=== PATIENT | male | born 1985 | race Caucasian/White ===

== ENCOUNTER 2016-07-10 11:25 | Day surgery (SDC) | payer BC, OTHER ==
[~2016-07-10 11:25] MED LIST: Lactated Ringers 1,000 ML IV SCH; Lidocaine 1%/Sod Bicarbonate in NS 8.4% 1 ML Syringe PRN; Sodium Chloride 0.9% 10 ML Syringe FLUSH PRN
[2016-07-10] MEDS ORDERED: fentaNYL 100 MCG/2 ML SDV IVPUSH PRN (12:05)
[2016-07-10] MEDS ORDERED: Ondansetron 4 MG/2 ML SDV IVPUSH PRN (12:05)
--- NOTE | 2016-07-10 12:05 | PCM.PREANE ---
Preanesthetic Assessment - Anesthesia/Transfusion/Family Hx Anesthesia History: Prior Anesthesia Without Reaction Type of Anesthesia Reaction: Unknown Family History of Anesthesia Reaction: No Transfusion History: Unknown Type of Transfusion Reactions: Reports: Other (see below) - Review of Systems General: No Symptoms Pulmonary: Wheezing (asthma, uses inhaler with pet allergies that triggers asthma) Cardiovascular: No Symptoms Gastrointestinal: No symptoms Neurological: No Symptoms Other: Reports: None - Physical Assessment NPO Status Date: 07/09/16 NPO Status Time: 22:00 Pulse: 62 O2 Sat by Pulse Oximetry: 97 Respiratory Rate: 16 Blood Pressure: 133/75 Vital Signs: Last Vital Signs Temp 36.5 C 07/10/16 11:30 Pulse 62 07/10/16 11:30 Resp 16 07/10/16 11:30 BP 133/75 07/10/16 11:30 Pulse Ox 97 07/10/16 11:30 Height: 1.83 m Weight: 73.482 kg ASA Class: 1 Mental Status: Alert & Oriented x3 Airway Class: Mallampati = 2 Dentition: Reports: Normal Dentition Thyro-Mental Finger Breadths: 3 Mouth Opening Finger Breadths: 3 ROM/Head Extension: Full Lungs: Clear to auscultation, Normal respiratory effort Cardiovascular: Regular Rate, Regular Rhythm - Lab Values: Laboratory Last Values WBC 5.20 K/mm3 (4.23-9.07) 06/24/16 10:51 RBC 5.26 M/mm3 (4.63-6.08) 06/24/16 10:51 Hgb 16.2 gm/L (13.7-17.5) 06/24/16 10:51 Hct 46.7 % (40.1-51.0) 06/24/16 10:51 MCV 88.8 fl (79.0-92.2) 06/24/16 10:51 MCH 30.8 pg (25.7-32.2) 06/24/16 10:51 MCHC 34.7 g/dl (32.2-35.5) 06/24/16 10:51 RDW Std Deviation 39.0 fL (35.1-43.9) 06/24/16 10:51 Plt Count 276 K/mm3 (163-337) 06/24/16 10:51 MPV 9.6 fl (9.4-12.3) 06/24/16 10:51 Neutrophils % (Manual) 63 % (40-60) H 06/24/16 10:51 Band Neutrophils % 0 % (0-10) 06/24/16 10:51 Lymphocytes % (Manual) 33 % (20-40) 06/24/16 10:51 Atypical Lymphs % 0 % 06/24/16 10:51 Monocytes % (Manual) 4 % (2-10) 06/24/16 10:51 Eosinophils % (Manual) 0 % (0.8-7.0) L 06/24/16 10:51 Basophils % (Manual) 0 (0.2-1.2) L 06/24/16 10:51 Platelet Estimate Adequate 06/24/16 10:51 RBC Morph Comment Normal 06/24/16 10:51 Sodium 140 mEq/L (136-145) 06/24/16 10:51 Potassium 4.3 mEq/L (3.5-5.1) 06/24/16 10:51 Chloride 103 mEq/L (98-107) 06/24/16 10:51 Carbon Dioxide 29 mEq/L (21-32) 06/24/16 10:51 Anion Gap 12.3 (5-15) 06/24/16 10:51 BUN 16 mg/dL (7-18) 06/24/16 10:51 Creatinine 0.9 mg/dL (0.7-1.3) 06/24/16 10:51 Est Cr Clr Drug Dosing TNP 06/24/16 10:51 Estimated GFR (MDRD) > 60 mL/min (>60) 06/24/16 10:51 BUN/Creatinine Ratio 17.8 (14-18) 06/24/16 10:51 Glucose 112 mg/dL (74-106) H 06/24/16 10:51 Calcium 9.7 mg/dL (8.5-10.1) 06/24/16 10:51 MRSA (PCR) Negative 06/24/16 10:51 - Allergies Allergies/Adverse Reactions: Allergies Allergy/AdvReac Type Severity Reaction Status Date / Time cat dander Allergy Other Verified 07/09/16 14:18 - Blood Blood Available: No Product(s) Available: None - Anesthesia Plan Pre-Op Medication Ordered: None - Acknowledgements Anesthesia Type Planned: General Anesthesia Pt an Appropriate Candidate for the Planned Anesthesia: Yes Alternatives and Risks of Anesthesia Discussed w Pt/Guardian: Yes Pt/Guardian Understands and Agrees with Anesthesia Plan: Yes PreAnesthesia Questionnaire 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 - Past Surgical History HEENT Surgical History: Reports: Other (see below) Other HEENT Surgeries/Procedures: wisdom teeth, seasonal allergies Musculoskeletal Surgical History: Reports: ORIF Other Musculoskeletal Surgeries/Procedures:: ORIF left olecranon fracture - SUBSTANCE USE Smoking Status *Q: Former Smoker Tobacco Use Within Last Twelve Months: Cigarettes - HOME MEDS Home Medications: Home Meds Albuterol [IJD: Ventolin HFA] 18 gm INH ASDIRECTED PRN 07/09/16 [History] Hydrocodone/Acetaminophen [[place] 5-325 Tablet] 1 - 2 each PO Q6H PRN #40 tablet 07/10/16 [Rx] - CURRENT (IN HOUSE) MEDS Current Meds: Current Medications Lactated Ringer's (Ringers, Lactated) 1,000 mls @ 125 mls/hr IV ASDIRECTED FRANCESCO Stop: 07/10/16 23:00 Last Admin: 07/10/16 11:45 Dose: 125 mls/hr Lidocaine/Sodium Bicarbonate (Buffered Lidocaine 1% In Ns 8.4%) 0.25 ml .XX ONETIME PRN PRN Reason: Prior to IV Start Stop: 07/10/16 18:00 Last Admin: 07/10/16 11:45 Dose: 0.25 ml Sodium Chloride (Saline Flush) 10 ml FLUSH ASDIRECTED PRN PRN Reason: Keep Vein Open Stop: 07/10/16 18:00 Preanesthetic Assessment - PHYSICAL ASSESSMENT O2 Sat by Pulse Oximetry: 97 RR: 16 Vital Signs: Last Vital Signs Temp 36.5 C 07/10/16 11:30 Pulse 62 07/10/16 11:30 Resp 16 07/10/16 11:30 BP 133/75 07/10/16 11:30 Pulse Ox 97 07/10/16 11:30 Height: 1.83 m Weight: 73.482 kg NPO Status Date: 07/09/16 NPO Status Time: 22:00 - LAB Values: Laboratory Last Values WBC 5.20 K/mm3 (4.23-9.07) 06/24/16 10:51 RBC 5.26 M/mm3 (4.63-6.08) 06/24/16 10:51 Hgb 16.2 gm/L (13.7-17.5) 06/24/16 10:51 Hct 46.7 % (40.1-51.0) 06/24/16 10:51 MCV 88.8 fl (79.0-92.2) 06/24/16 10:51 MCH 30.8 pg (25.7-32.2) 06/24/16 10:51 MCHC 34.7 g/dl (32.2-35.5) 06/24/16 10:51 RDW Std Deviation 39.0 fL (35.1-43.9) 06/24/16 10:51 Plt Count 276 K/mm3 (163-337) 06/24/16 10:51 MPV 9.6 fl (9.4-12.3) 06/24/16 10:51 Neutrophils % (Manual) 63 % (40-60) H 06/24/16 10:51 Band Neutrophils % 0 % (0-10) 06/24/16 10:51 Lymphocytes % (Manual) 33 % (20-40) 06/24/16 10:51 Atypical Lymphs % 0 % 06/24/16 10:51 Monocytes % (Manual) 4 % (2-10) 06/24/16 10:51 Eosinophils % (Manual) 0 % (0.8-7.0) L 06/24/16 10:51 Basophils % (Manual) 0 (0.2-1.2) L 06/24/16 10:51 Platelet Estimate Adequate 06/24/16 10:51 RBC Morph Comment Normal 06/24/16 10:51 Sodium 140 mEq/L (136-145) 06/24/16 10:51 Potassium 4.3 mEq/L (3.5-5.1) 06/24/16 10:51 Chloride 103 mEq/L (98-107) 06/24/16 10:51 Carbon Dioxide 29 mEq/L (21-32) 06/24/16 10:51 Anion Gap 12.3 (5-15) 06/24/16 10:51 BUN 16 mg/dL (7-18) 06/24/16 10:51 Creatinine 0.9 mg/dL (0.7-1.3) 06/24/16 10:51 Est Cr Clr Drug Dosing TNP 06/24/16 10:51 Estimated GFR (MDRD) > 60 mL/min (>60) 06/24/16 10:51 BUN/Creatinine Ratio 17.8 (14-18) 06/24/16 10:51 Glucose 112 mg/dL (74-106) H 06/24/16 10:51 Calcium 9.7 mg/dL (8.5-10.1) 06/24/16 10:51 MRSA (PCR) Negative 06/24/16 10:51 - ALLERGIES Allergies/Adverse Reactions: Allergies Allergy/AdvReac Type Severity Reaction Status Date / Time cat dander Allergy Other Verified 07/09/16 14:18
[2016-07-10] MEDS ORDERED: Propofol 200 MG/20 ML SDV ONE (12:54)
[2016-07-10] MEDS ORDERED: fentaNYL 250 MCG/5 ML SDV ONE (12:54)
[2016-07-10] MEDS ORDERED: Ondansetron 4 MG/2 ML SDV ONE (12:54)
[2016-07-10] MEDS ORDERED: ceFAZolin 1 GM Vial ONE (12:54)
[2016-07-10] MEDS ORDERED: Dexamethasone 4 MG/ML SDV ONE (12:54)
[2016-07-10] MEDS ORDERED: Midazolam 1 MG/ML 2 ML SDV ONE (12:54)
[2016-07-10] MEDS ORDERED: Bupivacaine 0.25% 30 ML SDV ONE (13:01)
[2016-07-10] MEDS ORDERED: HYDROmorphone 0.5 MG/0.5 ML Syringe IVPUSH PRN (13:05)
--- NOTE | 2016-07-10 14:54 | PCM.POSTAN ---
POST ANESTHESIA ASSESSMENT - MENTAL STATUS Mental Status: alert, oriented - VITAL SIGNS Pulse Rate: 72 SaO2: 100 Resp Rate: 16 Blood Pressure: 138/77 Temperature: 36.7 C - RESPIRATORY Respiratory Status: respiratory rate WNL, airway patent, O2 saturation stable, supplemental oxygen - CARDIOVASCULAR CV Status: pulse rate WNL, blood pressure stable - GASTROINTESTINAL GI Status: no symptoms - PAIN Pain Score: 0 - POST OP HYDRATION Hydration Status: adequate & stable
--- NOTE | 2016-07-10 15:40 | CR ---
Elbow: Single lateral view of the elbow was obtained. Side of examined was not marked on the study. Study obtained utilizing C-arm device. Lucencies from prior orthopedic hardware seen within the proximal ulna. Hardware presumably has been recently removed. Fluoroscopy time given as 1.4 seconds. Impression: 1. Operative study as noted above. Diagnostic code #2
[2016-07-10 15:45] VITALS: BP 130/81
--- NOTE | 2016-07-18 10:02 | PCM.OPNOTE ---
- General Post-Op/Procedure Note Date of Surgery/Procedure: 07/18/16 Operative Procedure(s): left elbow painful hardware removal Pre Op Diagnosis: left elbow painful hardware Post-Op Diagnosis: Same Anesthesia Technique: General LMA, Local Primary Surgeon: Carlos Andres Anesthesia Provider: Rosalia Helm Tax Accountant: Alyssa Lewis in mLs: 5 Complications: None Condition: Good
--- NOTE | 2016-07-18 10:32 | OR ---
DATE OF OPERATION: 07/10/2016 SURGEON: Carlos Andres MD OPERATION PERFORMED: Left elbow painful hardware removal. PREOPERATIVE DIAGNOSIS: Left elbow painful hardware. POSTOPERATIVE DIAGNOSIS: Left elbow painful hardware. ANESTHESIA: General LMA and local. ANESTHESIA PROVIDER: Rosalia Helm CRNA. EMERGENCY SERVICES PROFESSIONAL: Alyssa Lewis PA-C. ESTIMATED BLOOD LOSS: Less than 5 mL. COMPLICATIONS: None. CONDITION: Stable. DESCRIPTION OF PROCEDURE: The patient was identified in the preop holding area. Proper site was marked and identified by the surgeon. The patient was taken back to the operating theater where after adequate anesthesia, the patient's left upper extremity was sterilely prepped and draped in usual sterile fashion after a nonsterile tourniquet was applied. An OR time-out was performed and the patient received 2 g of IV Ancef. At this time, a previous incision was utilized. This was taken down to the plate and the tissue was divided off the plate. At this time, all screws and the plate were removed. All bony prominences were rongeured and resected back to a smooth margin. Curette was used on all the previous screw holes and adequate saline was then irrigated through the wound. Vicryl 2-0 was used subcutaneously, and jaqueline were used for the skin. The patient was placed in a soft tissue dressing and will follow up in 10 to 14 days. He tolerated the procedure well and was sent to the PACU in a stable condition. MMODAL /[id number]
== END 2016-07-10 14:45 | disposition home or self-care (01) ==
LOC: JD.SDS 11:25
PROVIDERS: ATTEND Orthopaedic Surgery
DX: Z47.2 Encounter for removal of internal fixation device (principal); J30.81 Allergic rhinitis due to animal (cat) (dog) hair and dander; Z98.890 Other specified postprocedural states; J30.2 Other seasonal allergic rhinitis; Z79.899 Other long term (current) drug therapy; Z87.891 Personal history of nicotine dependence
CPT/HCPCS: 20680; 36415; 76000; 80048; 85025; 87641; J0690; J1100; J2250; J2405; J3010; J7120; 01740; J2704; J3490